=== PATIENT | male | born 1980 | race Caucasian/White ===

== ENCOUNTER 2019-02-09 22:53 | Emergency (ER) | payer BC ==
--- NOTE | 2019-02-09 23:36 | ED ---
Allergic Reaction/Systemic - HPI Summary HPI Summary: This patient is a 38 year old male presenting to [facility] with a chief complaint of allergic reaction. Pt reports he ate cherries, the back of his tongue and throat went numb, and he can't swallow very well. He took allergy benadryl and feels he's getting better, with the numbness resolving but he states it still feels like it is tingling. The patient says he has had general tingling in the back of the throat from other fruits but was unaware of cherries as an allergy. - History of Current Complaint Chief Complaint: EDAllergicReaction Time Seen by Provider: 02/09/19 23:24 Hx Obtained From: Patient Onset/Duration: Sudden Onset, Started hours ago Pain Intensity: 0 Pain Scale Used: 0-10 Numeric - Allergies/Home Medications Allergies/Adverse Reactions: Allergies Allergy/AdvReac Type Severity Reaction Status Date / Time Pit fruits Allergy Swelling Uncoded 02/09/19 23:27 Of Face,Lips,& Throat Home Medications: Home Medications Multivitamin [Once Daily] 1 each PO DAILY 02/09/19 [History Confirmed 02/09/19] PMH/Surg Hx/FS Hx/Imm Hx Infectious Disease History: No Infectious Disease History: Denies: Traveled Outside the [place] in Last 30 Days - Social History Alcohol Use: Weekly Alcohol Amount: 2x week Substance Use Type: Reports: Marijuana Smoking Status (MU): Never Smoked Tobacco Review of Systems Negative: Fever Positive: Sore Throat - Tingling Positive: Numbness All Other Systems Reviewed And Are Negative: Yes Physical Exam - Summary Physical Exam Summary: VITAL SIGNS: Reviewed. GENERAL: Patient is a well-developed and nourished MALE who is lying comfortable in the stretcher. Patient is not in any acute respiratory distress. HEAD AND FACE: No signs of trauma. No ecchymosis, hematomas or skull depressions. No sinus tenderness. EYES: PERRLA, EOMI x 2, No injected conjunctiva, no nystagmus. EARS: Hearing grossly intact. Ear canals and tympanic membranes are within normal limits. MOUTH: Oropharynx within normal limits. Mild uvular swelling. NECK: Supple, trachea is midline, no adenopathy, no JVD, no carotid bruit, no c- spine tenderness, neck with full ROM CHEST: Symmetric, no tenderness at palpation LUNGS: Clear to auscultation bilaterally. No wheezing or crackles. CVS: Regular rate and rhythm, S1 and S2 present, no murmurs or gallops appreciated. ABDOMEN: Soft, non-tender. No signs of distention. No rebound no guarding, and no masses palpated. Bowel sounds are normal. EXTREMITIES: FROM in all major joints, no edema, no cyanosis or clubbing. NEURO: Alert and oriented x 3. No acute neurological deficits. Speech is normal and follows commands. SKIN: Dry and warm Triage Information Reviewed: Yes Vital Signs On Initial Exam: Initial Vitals Temp Pulse Resp BP Pulse Ox 98.2 F 79 20 166/103 98 02/09/19 22:55 02/09/19 22:55 02/09/19 22:55 02/09/19 22:55 02/09/19 22:55 Vital Signs Reviewed: Yes Diagnostics - Vital Signs Vital Signs Temp Pulse Resp BP Pulse Ox 02/09/19 22:55 98.2 F 79 20 166/103 98 - Laboratory Lab Statement: Any lab studies that have been ordered have been reviewed, and results considered in the medical decision making process. Allergic Reaction Course/Dx - Course Course Of Treatment: This patient is a 38 year old male presenting to [facility] with a chief complaint of allergic reaction. The patient was treated with Prednisone, and given a prescription for it. A plan for discharge was discussed with the patient and he was agreeable with this plan. - Diagnoses Provider Diagnoses: Allergic reaction Discharge - Sign-Out/Discharge Documenting (check all that apply): Patient Departure - Discharge Patient Received Moderate/Deep Sedation with Procedure: No - Discharge Plan Condition: Stable Disposition: HOME Prescriptions: predniSONE TAB* [Deltasone TAB*] 50 mg PO DAILY #5 tab Patient Education Materials: General Allergic Reaction (ED) Referrals: No Primary Care Phys,NOPCP [Primary Care Provider] - Additional Instructions: Return to ED with any new or worsening symptoms. - Attestation Statements Document Initiated by Scribe: Yes Documenting Scribe: Meir Montejo Provider For Whom Barbiibe is Documenting (Include Credential): Kaylen Roldan MD Scribe Attestation: Meir Mcguire, barbiibed for Kaylen Roldan MD on 02/10/19 at 0038. Status of Scribe Document: Ready
[2019-02-09] MEDS ORDERED: predniSONE TAB* 50 MG PO ONE (23:42)
[2019-02-10 00:10] VITALS: BP 128/87
== END 2019-02-10 00:42 | disposition home or self-care (01) ==
LOC: ED 22:53
DX: T78.1XXA Other adverse food reactions, not elsewhere classified, initial encounter (principal); R20.2 Paresthesia of skin; X58.XXXA Exposure to other specified factors, initial encounter
CPT/HCPCS: 99282; J7512